=== PATIENT | female | born 1980 | race Two or more races ===

== ENCOUNTER 2019-01-26 12:42 | Outpatient (CLI) | payer OTHER | END 2019-01-26 16:05 | disposition home or self-care (01) | LOC: LAB 12:42 | DX: J11.1 Influenza due to unidentified influenza virus with other respiratory manifestations (principal); J20.0 Acute bronchitis due to Mycoplasma pneumoniae ==

== ENCOUNTER 2020-07-21 07:51 | Outpatient (CLI) | payer OTHER | END 2020-07-21 07:52 | disposition home or self-care (01) | LOC: SONOGRAMA 07:51 | PROVIDERS: ATTEND Specialist | DX: K75.81 Nonalcoholic steatohepatitis (NASH) (principal) ==

== ENCOUNTER 2020-08-15 17:04 | Outpatient (CLI) | payer OTHER | END 2020-08-15 17:06 | disposition home or self-care (01) | LOC: LAB 17:04 | PROVIDERS: ATTEND Specialist | DX: E88.9 Metabolic disorder, unspecified (principal); K74.5 Biliary cirrhosis, unspecified ==

== ENCOUNTER 2020-09-07 13:09 | Outpatient (CLI) | payer OTHER | END 2020-09-07 13:10 | disposition home or self-care (01) | LOC: NUCLEAR 13:09 | PROVIDERS: ATTEND Specialist | DX: K74.5 Biliary cirrhosis, unspecified (principal); E88.09 Other disorders of plasma-protein metabolism, not elsewhere classified; K75.81 Nonalcoholic steatohepatitis (NASH) | CPT/HCPCS: 78215; A9541 ==

== ENCOUNTER → 2020-12-16 15:45 | Outpatient (CLI) | payer OTHER | END | disposition home or self-care (01) | LOC: PPH VACUNA 15:45 | PROVIDERS: ATTEND Emergency Medicine Pediatric Emergency Medicine | DX: Z23 Encounter for immunization (principal) ==

== ENCOUNTER 2021-02-27 07:40 | Outpatient (CLI) | payer OTHER | END 2021-02-27 08:45 | disposition home or self-care (01) | LOC: MRI 07:40 | PROVIDERS: ATTEND Obstetrics & Gynecology Gynecologic Oncology | DX: C53.0 Malignant neoplasm of endocervix (principal) | CPT/HCPCS: 72197 ==